=== PATIENT | male | born 1960 | race Caucasian/White ===

== ENCOUNTER → 2017-06-08 | Outpatient (CLI) | payer OTHER ==
[2017-06-08 10:26] LABS: ANION GAP 9 (5-19); BLOOD UREA NITROGEN 18 mg/dL (7-20); CALCIUM 9.2 mg/dL (8.4-10.2); CARBON DIOXIDE 29 mmol/L (22-30); CHLORIDE 107 mmol/L (98-107); CREATININE RESULT 1.01 mg/dL (0.52-1.25); Direct HDL 37 mg/dL (>40); GLUCOSE 107 mg/dL (75-110); POTASSIUM 4.5 mmol/L (3.6-5.0); SODIUM 145.2 mmol/L (137-145); TRIGLYCERIDES 92 mg/dL (<150)
[2017-06-08 10:37] LABS: DIRECT LDL 97 mg/dL (<100)
== END ==
LOC: OD 09:01
PROVIDERS: ATTEND Family Medicine
DX: E78.5 Hyperlipidemia, unspecified (principal); I10 Essential (primary) hypertension; Z12.5 Encounter for screening for malignant neoplasm of prostate; Z79.899 Other long term (current) drug therapy
CPT/HCPCS: 36415; 80048; 80061; 83036; 84153; 84443

== ENCOUNTER → 2017-07-17 | Outpatient (CLI) | payer OTHER ==
[~2017-07-17] MED LIST: BUPIVACAINE INJ/PF LIPOSOME/PF 266 MG/20 ML SDV ONE; THROMBIN (BOVINE) 5000 UNIT EPITAXIS KIT ONE; THROMBIN (BOVINE) TOPICAL 20000 UNIT VIAL ONE
== END ==
LOC: OD 08:21
PROVIDERS: ATTEND Family Medicine
DX: E03.9 Hypothyroidism, unspecified (principal); Z79.899 Other long term (current) drug therapy
CPT/HCPCS: 36415; 84436; 84443; C9290; J3490

== ENCOUNTER → 2018-09-25 | Outpatient (CLI) | payer OTHER ==
[2018-09-25 12:44] LABS: ANION GAP 9 (5-19); BLOOD UREA NITROGEN 15 mg/dL (7-20); CALCIUM 9.7 mg/dL (8.4-10.2); CARBON DIOXIDE 29 mmol/L (22-30); CHLORIDE 104 mmol/L (98-107); CHOLESTEROL 196.84 mg/dL (0-200); DIRECT LDL 129 mg/dL (<100); GLUCOSE 112 mg/dL (75-110); POTASSIUM 4.9 mmol/L (3.6-5.0); SODIUM 142.3 mmol/L (137-145); TRIGLYCERIDES 106 mg/dL (<150); VLDL CHOLESTEROL 21.2 mg/dL (10-31)
== END ==
LOC: OD 08:57
PROVIDERS: ATTEND Family Medicine
DX: I10 Essential (primary) hypertension (principal); E03.9 Hypothyroidism, unspecified; R39.12 Poor urinary stream; N52.9 Male erectile dysfunction, unspecified; Z79.899 Other long term (current) drug therapy
CPT/HCPCS: 36415; 80048; 80061; 83036; 84153; 84403; 84443

== ENCOUNTER 2018-10-09 05:25 | Day surgery (SDC) | payer OTHER ==
--- NOTE | 2018-09-25 10:34 | RADIOLOGY REPORT (SQ) ---
EXAM DESCRIPTION: CHEST PA/LATERAL COMPLETED DATE/TIME: 09/25/2018 10:19 am REASON FOR STUDY: PRE-OP COMPARISON: None. EXAM PARAMETERS: NUMBER OF VIEWS: two views TECHNIQUE: Digital Frontal and Lateral radiographic views of the chest acquired. RADIATION DOSE: NA LIMITATIONS: none FINDINGS: LUNGS AND PLEURA: No opacities, masses or pneumothorax. No pleural effusion. MEDIASTINUM AND HILAR STRUCTURES: No masses or contour abnormalities. HEART AND VASCULAR STRUCTURES: Heart normal size. No evidence for failure. BONES: No acute findings. HARDWARE: None in the chest. OTHER: No other significant finding. IMPRESSION: NO SIGNIFICANT RADIOGRAPHIC FINDING IN THE CHEST. TECHNICAL DOCUMENTATION: JOB ID: [id number] [employer]- All Rights Reserved Reading location - IP/workstation name: [email or web address]
--- NOTE | 2018-09-25 10:40 | EKG REPORT ---
SEVERITY:- NORMAL ECG - SINUS RHYTHM : Confirmed by: Jackie Duncan MD 25-Sep-2018 10:38:59
[2018-09-25 10:52] LABS: HEMATOCRIT 48.4 % (37.9-51.0); HEMOGLOBIN 16.2 g/dL (13.5-17.0); MEAN CORPUSCULAR HEMOGLOBIN 28.3 pg (27.0-33.4); MEAN CORPUSCULAR HGB CONC 33.6 g/dL (32.0-36.0); MEAN CORPUSCULAR VOLUME 84 fl (80-97); PLATELET COUNT 200 10^3/uL (150-450); RED BLOOD COUNT 5.73 10^6/uL (4.35-5.55); RED CELL DISTRIBUTION WIDTH 14.5 % (11.5-14.0); WHITE BLOOD COUNT 7.5 10^3/uL (4.0-10.5)
[2018-09-25 10:56] LABS: INTERNATIONAL RATION (INR) 0.86; PROTHROMBIN TIME 12.2 SEC (11.4-15.4)
[2018-09-25 10:57] LABS: PARTIAL THROMBOPLASTIN TIME 28.1 SEC (23.5-35.8)
[2018-09-25 11:14] LABS: ANION GAP 9 (5-19); BLOOD UREA NITROGEN 15 mg/dL (7-20); CALCIUM 9.7 mg/dL (8.4-10.2); CARBON DIOXIDE 29 mmol/L (22-30); CHLORIDE 104 mmol/L (98-107); GLUCOSE 112 mg/dL (75-110); POTASSIUM 4.9 mmol/L (3.6-5.0); SODIUM 142.3 mmol/L (137-145)
[~2018-10-09 05:25] MED LIST changes: -BUPIVACAINE INJ/PF LIPOSOME/PF 266 MG/20 ML SDV ONE; +CEFAZOLIN 1 GM/D5W RTU 1 GM/50 ML RTUPB IV PRN; +LACTATED RINGERS 1000 ML IV PRN; +LIDOCAINE 0.5% INJ-PF (5 MG/ML) 50 ML SDV SUBCUT PRN; -THROMBIN (BOVINE) 5000 UNIT EPITAXIS KIT ONE; -THROMBIN (BOVINE) TOPICAL 20000 UNIT VIAL ONE
[2018-10-09] MEDS ORDERED: CEFAZOLIN 1 GM/D5W RTU 1 GM/50 ML RTUPB IV ONE (05:57)
[2018-10-09] MEDS ORDERED: LIDOCAINE 1%/EPINEPHRINE INJ 20 ML VIAL ONE (06:47)
[2018-10-09] MEDS ORDERED: SODIUM BICARBONATE 8.4% INJ 50 MEQ/50 ML DISP.SYRIN ONE (06:47)
[2018-10-09] MEDS ORDERED: FENTANYL CITRATE INJ/PF 100 MCG/2 ML AMPUL ONE (07:10)
[2018-10-09] MEDS ORDERED: KETAMINE HCL INJ 500 MG/10 ML VIAL ONE (07:10)
[2018-10-09] MEDS ORDERED: MIDAZOLAM 2 MG/2 ML INJ ONE ×2 (07:10→07:18)
[2018-10-09] MEDS ORDERED: PROPOFOL INJ 200 MG/20 ML VIAL IV ONE ×2 (07:11→08:33)
[2018-10-09] MEDS ORDERED: ALBUTEROL SULFATE 0.083% NEB 2.5 MG/3 ML AMPUL NEB ONE (07:18)
[2018-10-09] MEDS ORDERED: LIDOCAINE 1% INJ-PF (10 MG/ML) 30 ML SDV ONE (07:36)
[2018-10-09] MEDS ORDERED: FENTANYL CITRATE INJ/PF 100 MCG/2 ML AMPUL IV PRN ×3 (08:46)
[2018-10-09] MEDS ORDERED: DIPHENHYDRAMINE HCL 50 MG/ML VIAL IV PRN (08:46)
[2018-10-09] MEDS ORDERED: OXYCODONE-ACETAMINOPHEN 5-325 MG TABLET PO PRN ×2 (08:46)
[2018-10-09] MEDS ORDERED: MEPERIDINE HCL/PF INJ 25 MG/1 ML DISP.SYRIN IV PRN (08:46)
[2018-10-09] MEDS ORDERED: PROMETHAZINE HCL INJ 25 MG/1 ML VIAL IV PRN ×2 (08:46)
--- NOTE | 2018-10-09 09:55 | Operative Report ---
Operative Report DATE OF SURGERY: 10/09/18 PREOPERATIVE DIAGNOSIS: Left index finger mass located dorsally and at the middle phalanx level POSTOPERATIVE DIAGNOSIS: Same OPERATION: Excision of mass of left dorsal index finger at the middle phalanx level with harvesting of the covering skin as a full-thickness graft and placed with a light pressure dressing and splint SURGEON: SOFY DIEGO ANESTHESIA: LMAC TISSUE REMOVED OR ALTERED: Mass of the left dorsal index finger COMPLICATIONS: None ESTIMATED BLOOD LOSS: Minimal PROCEDURE: The patient was brought into the operating room. The patient was laid on the operating room table in a supine position. The patient was prepped and draped in a sterile and aseptic fashion. After a timeout we then went ahead and marked the area on the dorsal left index finger at the middle phalanx level to be resected. We performed a digital block with 1% lidocaine with bicarb no epinephrine. A Jose drain was used for a tourniquet after the finger was exsanguinated. Then went ahead and anesthetize the area with 1% lidocaine with epinephrine and bicarb to help develop a plane at the undersurface of the mass. Then went ahead and excise the area. This area was dissected starting from the lateral aspect after a incision was made 270 degrees around it we left the proximal area attached. Dissection was performed with the tenotomy to develop a plane between the mass and the underlying structures. Slowly [id number] we were able to dissect the mass off of the peritoneum on of the extensor mechanism. Once we dissected the mass off of the extensor mechanism we then continued our dissection so that we can flip the mass outside of the wound in case it would rupture. [id number] we were then went ahead and dissected the mass from the overlying skin. There was a very thin plane but we were able to keep the mass intact through our dissection and or a able then to harvest the skin that was covering the mass. We left the flap attached proximally but there was a traumatic area which probably was the cause of the mass to begin with. We decided to place the tissue that we harvested off the mass as a full- thickness graft. We then went ahead and irrigated the area with a Betadine sterile water solution. We then went ahead and cut the harvested skin to appropriate size and placed it over the defect where the mass had been located. Horizontal mattress and simple 4-0 Prolene sutures were placed as we tacked the graft into place. Betadine was used to wash the margins of the wound. The tourniquet was then released. Throughout the case the bipolar was used for hemostasis and to take care of any vessels that were encountered during our dissection. Hemostasis was achieved with digital pressure. There was good capillary refill the tip of the finger. We then went ahead and placed bacitracin Xeroform 2 x 2's and a 1 inch conforming Bethanie to anchor the graft into place. We then used a three-quarter inch aluminum foam splint to stabilize the graft in the finger. The patient was then reversed from anesthesia and brought to the [facility] for recovery The approximate size of the the mass was approximately 2.5 cm but it was cut open in the operating room to see what the contents was. This dictation was performed using [employer] website naturally speaking. If there are any inconsistencies please contact the dictating surgeon. Subjective: No complaints Objective: Vital signs stable afebrile No bleeding Dressing intact Assessment and plan: Doing well. Elevate the operative site. Resume medications. Take antibiotics for 1 day Follow-up Full instructions were given to the patient and family and they understand Portions of this note may be dictated using [employer] voice recognition software. Occasional variations and spelling and vocabulary could be possible and are unintentional. Additionally, there is a chance that some errors may not be caught or corrected. Please notify the offer of any discrepancies noted or if any statements are unclear.
--- NOTE | 2018-10-09 09:57 | Discharge Summary ---
Discharge Summary (SDC) - Discharge Final Diagnosis: Mass of the left index finger, dorsal at the middle phalanx level. Date of Surgery: 10/09/18 Condition: Good Treatment or Instructions: Antibiotics for 1 day, then discontinue. Elevate operative area to decrease swelling. Do not strain, or lift heavy objects. Call for excessive bleeding, increased temperature of 101, uncontrolled pain, or excessive nausea or vomiting. You may reach Dr. Monte through his office at [phone]. In the event of an emergency after hours, then contact Dr. Monte through [facility]. Return to the office for a postop check on . The time will be scheduled by the nursing staff of [facility] prior to discharge. Please give the patient a copy of their labs and EKG so they can bring this to their PMD. Thank you Portions of this note may be dictated using [employer] voice recognition software. Occasional variations and spelling and vocabulary could be possible and are unintentional. Additionally, there is a chance that some errors may not be caught or corrected. Please notify the offer of any discrepancies noted or if any statements are unclear. Referrals: CHRISTOPHE SANTOYO MD [Primary Care Provider] - Discharge Diet: As Tolerated Discharge Activity: No Lifting/Push/Pulling Report the Following to Your Physician Immediately: Unusual Bleeding - Keep hand elevated. Monitor capillary refill. Do not move the finger much.
[2018-10-09] MEDS ORDERED: ONDANSETRON 4 MG TAB.RAPDIS ONE (11:34)
[2018-10-09 11:53] VITALS: BP 166/107
== END 2018-10-09 11:59 | disposition home or self-care (01) ==
LOC: OROUT 05:25
PROVIDERS: ATTEND Plastic Surgery
DX: C44.699 Other specified malignant neoplasm of skin of left upper limb, including shoulder (principal); M19.90 Unspecified osteoarthritis, unspecified site; I10 Essential (primary) hypertension; E07.9 Disorder of thyroid, unspecified; Z79.899 Other long term (current) drug therapy; F17.210 Nicotine dependence, cigarettes, uncomplicated
CPT/HCPCS: 93005; 36415; 84132; 85027; 85610; 85730; 88305 ×2; 71046; 93010; 11623; 15240; J2250; J0690; S0119; J3010; J3490 ×4; J2704; 1810; 80048

== ENCOUNTER → 2018-11-04 | Outpatient (CLI) | payer OTHER ==
--- NOTE | 2018-11-05 08:59 | RADIOLOGY REPORT (SQ) ---
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 RADIONUCLIDE AND DOSE: 9.4 mCi F18 FDG The route of agent administration: Intravenous FASTING BLOOD SUGAR: 82 mg/dl CONTRAST TYPE AND DOSE: No CT contrast given. TECHNIQUE: Blood glucose level was verified. Above dose of FDG was injected intravenously. 2-D seg mented attenuation correction images were obtained from the base of the skull to the midthighs. Nonc ontrast CT images were obtained for attenuation correction and fusion with emission images. CT image s were performed without oral or intravenous contrast and are not sensitive for parenchymal lesions. A series of overlapping emission PET images were obtained. Images reviewed and manipulated at [facility] [employer] work station by the radiologist. Images stored on PACS. LIMITATIONS: None. FINDINGS: HEAD AND NECK: No areas of abnormal metabolic activity in the soft tissues of the head and neck. CHEST: No areas of abnormal metabolic activity in the chest. ABDOMEN AND PELVIS: No areas of abnormal metabolic activity in the abdomen or pelvis. Expected physi ologic activity is present in the genitourinary system and bowel. PROXIMAL LOWER EXTREMITIES: No areas of abnormal metabolic activity in the soft tissues of the lower extremities. BONES: No abnormal metabolic activity in the visualized skeleton. ADDITIONAL CT FINDINGS: Mucous membrane thickening right maxillary sinus. Minimal coronary artery ca lcification. Mild degenerative disc changes in the spine. Few colonic diverticuli without CT signs of acute diverticulitis OTHER: Blood pool background activity 1.3 SUV. 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
== END ==
LOC: RAD 17:45
PROVIDERS: ATTEND Internal Medicine Medical Oncology
DX: C76.42 Malignant neoplasm of left upper limb (principal)
CPT/HCPCS: 78815; A9552

== ENCOUNTER 2020-10-31 10:17 | Emergency (ER) | payer BC, OTHER ==
[2020-10-31 10:22] VITALS: BP 161/88
[2020-10-31] MEDS ORDERED: DIPH/PERTUSS(ACELL)/TETANUS VAC/PF 0.5 ML SYR (>=10YO) IM ONE (10:28)
--- NOTE | 2020-10-31 10:30 | ER Document Report ---
ED Medical Screen (RME) - General Chief Complaint: Laceration Stated Complaint: LACERATION/ RIGHT ARM Time Seen by Provider: 10/31/20 10:23 Primary Care Provider: CHRISTOPHE SANTOYO MD [Primary Care Provider] - Follow up as needed Mode of Arrival: Ambulatory Information source: Patient Notes: HPI; 60-year-old male presents to the emergency room with multiple abrasions and a laceration to his right upper arm. 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 Sustaining a laceration and multiple abrasions. Unknown last tetanus shot. PE: Alert and oriented x3. Lungs: Clear to auscultation without rales, rhonchi, wheezes. Heart: Regular rate rhythm without murmurs, rubs, gallops. There is a 3 cm jagged laceration noted to the right upper arm. There are multiple abrasions to his abdomen and legs. Unable to do full assessment in triage. I have greeted and performed a rapid initial assessment of this patient. A comprehensive ED assessment and evaluation of the patient, analysis of test results and completion of the medical decision making process will be conducted by additional ED providers. I have specifically instructed the patient or family members with the patient to immediately return to any nursing staff should anything change in the patient's condition or with their chief complaint. TRAVEL OUTSIDE OF THE [place] IN LAST 30 DAYS: No - Related Data Allergies/Adverse Reactions: No Known Allergies Allergy (Verified 10/31/20 10:23) Home Medications: bp. thyroid Past Medical History - Social History Chew tobacco use (# tins/day): No Frequency of alcohol use: None Drug Abuse: Marijuana - Past Medical History Cardiac Medical History: Reports: Hx Hypertension Denies: Hx Coronary Artery Disease, Hx Heart Attack Pulmonary Medical History: Denies: Hx Asthma, Hx Bronchitis, Hx COPD, Hx Pneumonia Neurological Medical History: Denies: Hx Cerebrovascular Accident, Hx Seizures Musculoskeltal Medical History: Reports Hx Arthritis - Immunizations Hx Diphtheria, Pertussis, Tetanus Vaccination: Yes Physical Exam - Vital signs Vitals: Temp Pulse Resp BP Pulse Ox 97.7 F 98 16 161/88 H 95 10/31/20 10:22 10/31/20 10:22 10/31/20 10:22 10/31/20 10:22 10/31/20 10:22 Course - Vital Signs Vital signs: Temp Pulse Resp BP Pulse Ox 97.7 F 98 16 161/88 H 95 10/31/20 10:23 10/31/20 10:22 10/31/20 10:22 10/31/20 10:22 10/31/20 10:22 Doctor's Discharge - Discharge Referrals: CHRISTOPHE SANTOYO MD [Primary Care Provider] - Follow up as needed
[2020-10-31] MEDS ORDERED: LIDOCAINE 1%/EPINEPHRINE INJ 20 ML VIAL INJ ONE (10:54)
--- NOTE | 2020-10-31 11:11 | ER Document Report ---
ED General - General Chief Complaint: Laceration Stated Complaint: LACERATION/ RIGHT ARM Time Seen by Provider: 10/31/20 10:23 Primary Care Provider: CHRISTOPHE SANTOYO MD [Primary Care Provider] - Follow up as needed Mode of Arrival: Ambulatory Notes: HPI: 60-year-old male on no blood thinning medications who fell around 8 feet onto dirt from an air conditioner repair stand. Patient did not hit his head. He complains of pain to his right elbow and right ribs. He denies difficulty breathing. Denies any anterior posterior neck pain, midline back pain, pelvis pain, or pain to any other extremity. ROS: See HPI All other review of systems reviewed and otherwise negative Reviewed vital signs and nursing note as charted by RN. PHYSICAL EXAM: CONSTITUTIONAL: Alert and oriented and responds appropriately to questions. Well-appearing; well-nourished HEAD: Normocephalic; atraumatic EYES: PERRL; full extraocular range of motion ENT: Normal nose; no rhinorrhea; moist mucous membranes; pharynx without lesions noted NECK: Supple without meningismus; non-tender; no cervical lymphadenopathy, no masses CARD: Regular rate and rhythm; no murmurs; symmetric distal pulses RESP: Normal chest excursion without splinting or tachypnea; some tenderness to palpation of the right ribs with some abrasions present. No crepitus, or flail chest. No wheezing or rhonchi appreciated. Bilateral equal breath sounds ABD/GI: Normal bowel sounds; non-distended; soft, non-tender to deep palpation of all 4 quadrants of the abdomen BACK: The back appears normal and is non-tender to palpation EXT: Patient has full range of motion of all 4 extremities. Laceration to the medial aspect of the right elbow. Abrasion to the right michele SKIN: See above NEURO: CN 2-12 intact; 5/5 bilateral upper and lower extremity strength with sensation intact to light touch PSYCH: The patient's mood and manner are appropriate. Grooming and personal hygiene are appropriate. TRAVEL OUTSIDE OF THE [place] IN LAST 30 DAYS: No - Related Data Allergies/Adverse Reactions: No Known Allergies Allergy (Verified 10/31/20 10:23) Home Medications: bp. thyroid Past Medical History - General Information source: Patient - Social History Smoking Status: Unknown if Ever Smoked Chew tobacco use (# tins/day): No Frequency of alcohol use: None Drug Abuse: Marijuana Family History: Reviewed & Not Pertinent Patient has homicidal ideation: No - Past Medical History Cardiac Medical History: Reports: Hx Hypertension Denies: Hx Coronary Artery Disease, Hx Heart Attack Pulmonary Medical History: Denies: Hx Asthma, Hx Bronchitis, Hx COPD, Hx Pneumonia Neurological Medical History: Denies: Hx Cerebrovascular Accident, Hx Seizures Musculoskeletal Medical History: Reports Hx Arthritis - Immunizations Hx Diphtheria, Pertussis, Tetanus Vaccination: Yes Physical Exam - Vital signs Vitals: Temp Pulse Resp BP Pulse Ox 97.7 F 98 16 161/88 H 95 10/31/20 10:22 10/31/20 10:22 10/31/20 10:22 10/31/20 10:22 10/31/20 10:22 Course - Re-evaluation Re-evalutation: 10/31/20 11:11 Given the above history and physical, not on blood thinning medications, no head trauma, I will x-ray the patient's right elbow as well as the patient's chest. I do not believe any other imaging or laboratory work is necessary at this moment. We did update the patient's tetanus status. We will suture the elbow appropriately. 10/31/20 11:29 I do not detect any bony involvement to the elbow or foreign bodies present on x-ray of my initial interpretation. X-ray of the chest shows no obvious pneumot horax or displaced rib fractures. - Vital Signs Vital signs: Temp Pulse Resp BP Pulse Ox 97.7 F 98 16 161/88 H 95 10/31/20 10:23 10/31/20 10:22 10/31/20 10:22 10/31/20 10:22 10/31/20 10:22 Procedures - Laceration/Wound Repair Right Arm Wound length (cm): 5 Wound's Depth, Shape: Into muscle, Irregular, Flap Laceration pre-procedure: Sterile PPE donned, Betadine prep applied Anesthetic type: 1% Lidocaine w/epi Volume Anesthetic (mLs): 8 Wound explored: No foreign body removed Wound Debrided: Minimal Wound Repaired With: Sutures Suture Size/Type: 3:0, Prolene Number of Sutures: 7 Layer Closure?: No Post-procedure wound care: Sterile dressing applied Post-procedure NV exam normal: Yes Complications: No Notes: 10/31/20 11:51 There was also a 1 cm laceration to the right michele. I used 4.0 Prolene with 2 sutures placed after cleaning and anesthetized the area with 1% lidocaine Discharge - Discharge Clinical Impression: Accidental fall Qualifiers: Encounter type: initial encounter Qualified Code(s): W19.XXXA - Unspecified fall, initial encounter Laceration of right upper arm Qualifiers: Encounter type: initial encounter Qualified Code(s): S41.111A - Laceration without foreign body of right upper arm, initial encounter Laceration of right leg excluding thigh Qualifiers: Encounter type: initial encounter Qualified Code(s): S81.811A - Laceration without foreign body, right lower leg, initial encounter Contusion of rib on right side Qualifiers: Encounter type: initial encounter Qualified Code(s): S20.211A - Contusion of right front wall of thorax, initial encounter Condition: Good Disposition: HOME, SELF-CARE Instructions: Antibiotic Ointment Protection ([facility]), Laceration Care ([facility]) Additional Instructions: Come back immediately for any shortness of breath, weakness or numbness, confusion, vomiting, redness or discharge around the wounds, fever, or any other acute problems. Please apply bacitracin to the wounds twice daily until healing. Return in 10 days for suture removal. Take the course of antibiotics as prescribed. Prescriptions: Cephalexin Monohydrate [Keflex 500 mg Capsule] 500 mg PO Q8H 7 Days #21 capsule Referrals: CHRISTOPHE SANTOYO MD [Primary Care Provider] - Follow up as needed
--- NOTE | 2020-10-31 11:46 | RADIOLOGY REPORT (SQ) ---
EXAM DESCRIPTION: ELBOW RIGHT OVER 2 VIEWS IMAGES COMPLETED DATE/TIME: 10/31/2020 11:29 am REASON FOR STUDY: fall, trauma COMPARISON: None. NUMBER OF VIEWS: Four views. TECHNIQUE: AP, lateral, and both oblique radiographic images acquired of the right elbow. LIMITATIONS: None. FINDINGS: MINERALIZATION: Normal. BONES: No acute fracture or dislocation. No worrisome bone lesions. JOINT: No effusion. SOFT TISSUES: Medial skin laceration. No foreign body. OTHER: No other significant finding. IMPRESSION: No fracture or foreign body. TECHNICAL DOCUMENTATION: JOB ID: [id number] 2010 [employer] All Rights Reserved Reading location - IP/workstation name: [email or web address]
--- NOTE | 2020-10-31 11:47 | RADIOLOGY REPORT (SQ) ---
EXAM DESCRIPTION: CHEST SINGLE VIEW IMAGES COMPLETED DATE/TIME: 10/31/2020 8:29 am REASON FOR STUDY: fall, trauma COMPARISON: 09/25/2018 EXAM PARAMETERS: NUMBER OF VIEWS: One view. TECHNIQUE: Single frontal radiographic view of the chest acquired. RADIATION DOSE: NA LIMITATIONS: Left lung apex is not fully included. FINDINGS: LUNGS AND PLEURA: No opacities, masses or visualize pneumothorax. No pleural effusion. MEDIASTINUM AND HILAR STRUCTURES: No masses. Contour normal. HEART AND VASCULAR STRUCTURES: Heart normal in size. Normal vasculature. BONES: No acute findings. HARDWARE: None in the chest. OTHER: Surgical clips in the left axilla. IMPRESSION: No acute radiographic abnormality in the visualized chest. TECHNICAL DOCUMENTATION: JOB ID: [id number] 2010 [employer]- All Rights Reserved Reading location - IP/workstation name: [email or web address]
[2020-10-31] MEDS ORDERED: CEPHALEXIN 500 MG CAPSULE PO ONE (11:53)
[2020-10-31] MEDS ORDERED: BACITRACIN ZINC OINTMENT 15 GM TP ONE (11:53)
== END 2020-10-31 12:16 | disposition home or self-care (01) ==
LOC: ER 10:17
DX: S51.011A Laceration without foreign body of right elbow, initial encounter (principal); S81.811A Laceration without foreign body, right lower leg, initial encounter; S20.211A Contusion of right front wall of thorax, initial encounter; W17.89XA Other fall from one level to another, initial encounter; Y93.89 Activity, other specified; F12.10 Cannabis abuse, uncomplicated; I10 Essential (primary) hypertension; Z23 Encounter for immunization; Z79.899 Other long term (current) drug therapy
CPT/HCPCS: 99284; 90471; 71045; 73080; 90715; 12002; J3490

== ENCOUNTER → 2020-12-10 | Outpatient (CLI) | payer BC ==
[2020-12-10 09:59] LABS: ANION GAP 9 (5-19); BLOOD UREA NITROGEN 15 mg/dL (7-20); CALCIUM 9.5 mg/dL (8.4-10.2); CARBON DIOXIDE 28 mmol/L (22-30); CHLORIDE 103 mmol/L (98-107); CHOLESTEROL 188.32 mg/dL (0-200); GLUCOSE 119 mg/dL (75-110); POTASSIUM 4.5 mmol/L (3.6-5.0); TRIGLYCERIDES 101 mg/dL (<150)
[2020-12-10 10:10] LABS: DIRECT LDL 108 mg/dL (<100)
== END ==
LOC: OD 08:27
PROVIDERS: ATTEND Family Medicine
DX: E03.9 Hypothyroidism, unspecified (principal); I10 Essential (primary) hypertension; R39.12 Poor urinary stream; Z12.5 Encounter for screening for malignant neoplasm of prostate; N52.9 Male erectile dysfunction, unspecified; Z79.899 Other long term (current) drug therapy
CPT/HCPCS: 36415; 84443; 80048; 83036; 80061; G0103